=== PATIENT | female | born 1960 | race Caucasian/White ===

== ENCOUNTER 2023-01-23 07:07 | Emergency (ER) | payer OTHER ==
[2023-01-23 08:08] LABS: #Basophils 0.1 10x3/uL (0.0-0.2); #Eosinphils 0.1 10x3/uL (0.0-0.5); #Monocytes 0.7 10x3/uL (0.0-1.1); #Neutrophils 6.7 10x3/uL (1.5-8.4); %Basophils 0.6 % (0.0-2.0); %Eosinophils 1.3 % (0.0-6.0); %Lymphocytes 24.3 % (18.0-47.0); %Monocytes 7.3 % (0.0-10.0); %Neutrophils 65.6 % (40.0-75.0); Hematocrit 24.4 % (34.9-44.5); Hemoglobin 8.3 g/dL (12.0-15.5); Mean Corpuscular Hemoglobin 33.5 pg (27.0-33.0); Mean Corpuscular Volume 98.4 fl (81.6-98.3); Mean Platelet Volume 9.8 fl (7.4-10.4); Platelet Count 397 10x3/uL (150-450); RBC Distribution Width 13.9 % (11.5-14.5); Red Blood Cell (RBC) Count 2.48 10x6/uL (3.90-5.03); White Blood Cell (WBC) Count 10.2 10x3/uL (3.5-10.5)
[2023-01-23 08:16] LABS: ALT (SGPT) 7 U/L (8-55); AST (SGOT) 9 U/L (5-34); Albumin 3.6 g/dL (3.4-4.8); Alkaline Phosphatase 95 U/L (40-110); Anion Gap 25 mmol/L (10-20); BUN (Urea Nitrogen) 70 mg/dL (9.8-20.1); Bilirubin, Total 0.7 mg/dL (0.2-1.2); Calc. Creatinine Clearance 0 mL/min (70-130); Calcium 9.3 mg/dL (7.8-10.44); Carbon Dioxide 20 mmol/L (23-31); Chloride 99 mmol/L (98-107); Estimated GFR 5; Globulin 2.8 g/dL (2.4-3.5); Glucose 153 mg/dL (80-115); Magnesium 2.3 mg/dL (1.6-2.6); Potassium 3.4 mmol/L (3.5-5.1); Protein, Total 6.4 g/dL (5.8-8.1); Sodium 141 mmol/L (136-145)
== END 2023-01-23 08:55 | disposition home or self-care (01) ==
LOC: CSHERS 07:07
DX: I95.9 Hypotension, unspecified (principal); E11.22 Type 2 diabetes mellitus with diabetic chronic kidney disease; N18.6 End stage renal disease
CPT/HCPCS: 36415; 71045; 80053; 83735; 85025; 93005

== ENCOUNTER 2023-01-25 06:50 | Emergency (ER) | payer OTHER ==
[2023-01-25 07:58] LABS: ALT (SGPT) 8 U/L (8-55); AST (SGOT) 10 U/L (5-34); Albumin 3.5 g/dL (3.4-4.8); Alkaline Phosphatase 84 U/L (40-110); Anion Gap 18 mmol/L (10-20); BUN (Urea Nitrogen) 44 mg/dL (9.8-20.1); Bilirubin, Total 0.7 mg/dL (0.2-1.2); Calc. Creatinine Clearance 0 mL/min (70-130); Calcium 8.9 mg/dL (7.8-10.44); Carbon Dioxide 25 mmol/L (23-31); Chloride 102 mmol/L (98-107); Estimated GFR 7; Globulin 2.8 g/dL (2.4-3.5); Glucose 139 mg/dL (80-115); Potassium 3.4 mmol/L (3.5-5.1); Protein, Total 6.3 g/dL (5.8-8.1); Sodium 142 mmol/L (136-145)
[2023-01-25 08:04] LABS: #Eosinphils 0.1 10x3/uL (0.0-0.5); #Monocytes 0.5 10x3/uL (0.0-1.1); #Neutrophils 4.9 10x3/uL (1.5-8.4); %Basophils 0.4 % (0.0-2.0); %Eosinophils 1.7 % (0.0-6.0); %Lymphocytes 27.3 % (18.0-47.0); %Neutrophils 62.7 % (40.0-75.0); Hematocrit 25.4 % (34.9-44.5); Hemoglobin 8.4 g/dL (12.0-15.5); Mean Corpuscular HGB CONC 33.1 g/dL (32.0-36.0); Mean Corpuscular Hemoglobin 33.3 pg (27.0-33.0); Mean Corpuscular Volume 100.8 fl (81.6-98.3); Mean Platelet Volume 9.8 fl (7.4-10.4); Platelet Count 427 10x3/uL (150-450); Red Blood Cell (RBC) Count 2.52 10x6/uL (3.90-5.03); White Blood Cell (WBC) Count 7.8 10x3/uL (3.5-10.5)
== END 2023-01-25 11:42 | disposition home or self-care (01) ==
LOC: CSHERS 06:50
DX: I12.0 Hypertensive chronic kidney disease with stage 5 chronic kidney disease or end stage renal disease (principal); E11.22 Type 2 diabetes mellitus with diabetic chronic kidney disease; N18.6 End stage renal disease; J45.909 Unspecified asthma, uncomplicated; Z99.2 Dependence on renal dialysis
CPT/HCPCS: 80053; 85025; 93005; 96360; 96361

== ENCOUNTER 2023-05-19 17:46 | Emergency (ER) | payer OTHER ==
[2023-05-19 20:41] LABS: #Monocytes 0.7 10x3/uL (0.0-1.1); %Basophils 0.3 % (0.0-2.0); %Eosinophils 0.3 % (0.0-6.0); %Lymphocytes 21.2 % (18.0-47.0); %Monocytes 11.2 % (0.0-10.0); %Neutrophils 66.3 % (40.0-75.0); Hematocrit 31.7 % (34.9-44.5); Mean Corpuscular HGB CONC 34.7 g/dL (32.0-36.0); Mean Corpuscular Hemoglobin 31.1 pg (27.0-33.0); Mean Corpuscular Volume 89.5 fl (81.6-98.3); Mean Platelet Volume 9.5 fl (7.4-10.4); Platelet Count 301 10x3/uL (150-450); RBC Distribution Width 13.8 % (11.5-14.5); Red Blood Cell (RBC) Count 3.54 10x6/uL (3.90-5.03)
[2023-05-19 20:55] LABS: ALT (SGPT) 9 U/L (8-55); AST (SGOT) 10 U/L (5-34); Albumin 3.4 g/dL (3.4-4.8); Alkaline Phosphatase 120 U/L (40-110); Anion Gap 16 mmol/L (10-20); BUN (Urea Nitrogen) 45 mg/dL (9.8-20.1); Bilirubin, Total 1.3 mg/dL (0.2-1.2); Calc. Creatinine Clearance 0 mL/min (70-130); Calcium 9.3 mg/dL (7.8-10.44); Carbon Dioxide 27 mmol/L (23-31); Chloride 93 mmol/L (98-107); Estimated GFR 5; Globulin 3.3 g/dL (2.4-3.5); Glucose 138 mg/dL (80-115); Potassium 2.9 mmol/L (3.5-5.1); Protein, Total 6.7 g/dL (5.8-8.1); Sodium 133 mmol/L (136-145)
[2023-05-19 21:08] LABS: Bilirubin Neg (Negative); Blood, Urine 250 (Negative); Glucose, Urine (Dipstick) Normal (Negative); Ketone, Urine Negative (Negative); Leukocyte 500 (Negative); Nitrite Negative (Negative); Protein, Urine (Dipstick) 500 mg/dl (Neg-Trace); Specific Gravity, Urine 1.015 (1.005-1.030); Urobilinogen Normal mg/dL (Less than 2)
[2023-05-19 21:10] LABS: Clarity Cloudy (Clear)
[2023-05-19 21:12] LABS: CAUTI Indications for Culture Pelvic or flank pain; RBC/HPF 21-50 HPF (0-3); WBC/HPF Greater Than 50 HPF (0-3)
[2023-05-19 21:15] LABS: Bacteria/HPF None Seen HPF (None Seen); Urine Culture Reflex Yes Yes
[2023-05-19] MEDS ORDERED: cefTRIAXone (ROCEPHIN) 1 GM VIAL ONE (21:23)
== END 2023-05-19 22:00 | disposition home or self-care (01) ==
LOC: CSHERS 17:46
DX: T83.122A Displacement of indwelling ureteral stent, initial encounter (principal)
CPT/HCPCS: 80053; 81001; 85025; 87077; 87086; 87186; 96374; J0696

== ENCOUNTER 2023-06-24 11:34 | Emergency (ER) | payer OTHER ==
[2023-06-24] MEDS ORDERED: diphenhydrAMINE 50 MG/ML VIAL ONE (11:53)
[2023-06-24 11:56] LABS: #Eosinphils 0.2 10x3/uL (0.0-0.5); #Monocytes 0.4 10x3/uL (0.0-1.1); #Neutrophils 2.4 10x3/uL (1.5-8.4); %Basophils 0.6 % (0.0-2.0); %Eosinophils 3.7 % (0.0-6.0); %Lymphocytes 39.1 % (18.0-47.0); %Monocytes 8.1 % (0.0-10.0); %Neutrophils 48.1 % (40.0-75.0); Hematocrit 34.1 % (34.9-44.5); Hemoglobin 11.3 g/dL (12.0-15.5); Mean Corpuscular HGB CONC 33.1 g/dL (32.0-36.0); Mean Corpuscular Hemoglobin 31.3 pg (27.0-33.0); Mean Corpuscular Volume 94.5 fl (81.6-98.3); Mean Platelet Volume 9.8 fl (7.4-10.4); Platelet Count 229 10x3/uL (150-450); RBC Distribution Width 14.7 % (11.5-14.5); Red Blood Cell (RBC) Count 3.61 10x6/uL (3.90-5.03); White Blood Cell (WBC) Count 4.9 10x3/uL (3.5-10.5)
[2023-06-24 12:16] LABS: ALT (SGPT) 7 U/L (8-55); AST (SGOT) 13 U/L (5-34); Alkaline Phosphatase 156 U/L (40-110); Anion Gap 15 mmol/L (10-20); BUN (Urea Nitrogen) 15 mg/dL (9.8-20.1); Bilirubin, Total 0.8 mg/dL (0.2-1.2); Calc. Creatinine Clearance 0 mL/min (70-130); Calcium 9.2 mg/dL (7.8-10.44); Carbon Dioxide 29 mmol/L (23-31); Chloride 101 mmol/L (98-107); Estimated GFR 14; Globulin 2.9 g/dL (2.4-3.5); Glucose 83 mg/dL (80-115); Potassium 2.9 mmol/L (3.5-5.1); Protein, Total 6.9 g/dL (5.8-8.1); Sodium 142 mmol/L (136-145)
[2023-06-24 12:20] LABS: Troponin I 0.015 ng/mL (< 0.028)
[2023-06-24] MEDS ORDERED: Potassium Chloride 20 MEQ TAB ONE (12:53)
== END 2023-06-24 14:05 | disposition home or self-care (01) ==
LOC: CSHERS 11:34
DX: R55 Syncope and collapse (principal); F17.210 Nicotine dependence, cigarettes, uncomplicated; N18.6 End stage renal disease; Z99.2 Dependence on renal dialysis
CPT/HCPCS: 36415; 80053; 84484; 85025; 93005; 96374; J1200

== ENCOUNTER 2023-10-10 14:23 | Outpatient (CLI) | payer OTHER | END 2023-10-10 14:24 | disposition home or self-care (01) | LOC: CSHMAMMO 14:23 | PROVIDERS: ATTEND Family Medicine Sports Medicine | DX: Z13.820 Encounter for screening for osteoporosis (principal); M81.0 Age-related osteoporosis without current pathological fracture; M85.89 Other specified disorders of bone density and structure, multiple sites; Z78.0 Asymptomatic menopausal state | CPT/HCPCS: 77080 ==

== ENCOUNTER 2023-10-21 12:41 | Outpatient (CLI) | payer OTHER | END 2023-10-21 12:42 | disposition home or self-care (01) | LOC: CSHMAMMO 12:41 | PROVIDERS: ATTEND Family Medicine Sports Medicine | DX: N63.11 Unspecified lump in the right breast, upper outer quadrant (principal); N63.25 Unspecified lump in the left breast, overlapping quadrants; R92.323 Mammographic fibroglandular density, bilateral breasts; N64.59 Other signs and symptoms in breast | CPT/HCPCS: 76642 ×2; 77066; G0279 ==

== ENCOUNTER → 2023-11-11 | Day surgery (SDC) | payer OTHER | LOC: CSHULT 12:08 | PROVIDERS: ATTEND Internal Medicine Hematology & Oncology | PROC: 0H95XZX Drainage of Chest Skin, External Approach, Diagnostic (ICD-10-PCS; principal; 2023-11-11) | DX: C50.411 Malignant neoplasm of upper-outer quadrant of right female breast (principal); N63.11 Unspecified lump in the right breast, upper outer quadrant; Z17.0 Estrogen receptor positive status [ER+] | CPT/HCPCS: 19083; 19084; 88305; 88341; 88342; 88360 ==

== ENCOUNTER 2024-01-23 12:19 | Outpatient (CLI) | payer OTHER, MEDICAID | END 2024-01-23 12:20 | disposition home or self-care (01) | LOC: CSHULT 12:19 | PROVIDERS: ATTEND Internal Medicine Hematology & Oncology | DX: I42.7 Cardiomyopathy due to drug and external agent (principal); C50.411 Malignant neoplasm of upper-outer quadrant of right female breast; Z79.899 Other long term (current) drug therapy; I08.1 Rheumatic disorders of both mitral and tricuspid valves | CPT/HCPCS: 93306 ==

== ENCOUNTER 2024-02-02 06:48 | Day surgery (SDC) | payer OTHER, MEDICAID ==
[2024-01-29 11:35] VITALS: BMI 32.1
[2024-01-30 11:45] LABS: Hematocrit 36.7 % (34.9-44.5); Hemoglobin 11.6 g/dL (12.0-15.5); Mean Corpuscular HGB CONC 31.6 g/dL (32.0-36.0); Mean Corpuscular Volume 101.1 fL (81.6-98.3); Mean Platelet Volume 9.6 fL (7.4-10.4); Platelet Count 299 10x3/uL (150-450); RBC Distribution Width 13.7 % (11.5-14.5); Red Blood Cell (RBC) Count 3.63 10x6/uL (3.90-5.03); White Blood Cell (WBC) Count 9.1 10x3/uL (3.5-10.5)
[2024-01-30 13:07] LABS: Anion Gap 20 mmol/L (10-20); BUN (Urea Nitrogen) 37 mg/dL (9.8-20.1); Calc. Creatinine Clearance 0 mL/min (70-130); Calcium 10.3 mg/dL (7.8-10.44); Carbon Dioxide 29 mmol/L (23-31); Chloride 96 mmol/L (98-107); Estimated GFR 8; Glucose 125 mg/dL (80-115); Potassium 3.8 mmol/L (3.5-5.1); Sodium 141 mmol/L (136-145)
[2024-02-02] MEDS ORDERED: Lidocaine 1% MPF 2 ML VIAL ONE (07:30)
[2024-02-02] MEDS ORDERED: Bupivacaine HCl 0.5%/Epinephrine 1:200,000/PF 30 ml Vial ONE (07:34)
[2024-02-02] MEDS ORDERED: Lidocaine 1% PF 5 ML VIAL ONE (08:31)
[2024-02-02] MEDS ORDERED: Ondansetron PF 4 MG/2 ML Vial ONE (08:31)
[2024-02-02] MEDS ORDERED: Dexamethasone 20 MG/5 ML VIAL ONE (08:31)
[2024-02-02] MEDS ORDERED: fentaNYL 50 mcg/mL 1 mL Vial ONE ×2 (08:32→10:20)
[2024-02-02] MEDS ORDERED: Clindamycin/D5W 600 mg/50 ml Premix Bag ONE (08:35)
[2024-02-02] MEDS ORDERED: PROPOFOL 20 ML ONE (08:58)
[2024-02-02] MEDS ORDERED: PHENYLEPHRINE-NS 100 MCG/ML 10 ML SYRINGE ONE (09:03)
[2024-02-02] MEDS ORDERED: ePHEDrine Sulfate 50 MG/10 ML VIAL ONE (09:28)
[2024-02-02] MEDS ORDERED: Promethazine HCl 25 MG/ML VIAL ONE (11:08)
== END 2024-02-02 11:54 | disposition home or self-care (01) ==
LOC: CSHSDC 06:48
PROVIDERS: ATTEND Surgery
PROC: 0UB98ZZ Excision of Uterus, Via Natural or Artificial Opening Endoscopic (ICD-10-PCS; principal; 2024-02-02)
PROC: 0UB98ZZ Excision of Uterus, Via Natural or Artificial Opening Endoscopic (ICD-10-PCS; 2024-02-02)
PROC: 0JH63WZ Insertion of Totally Implantable Vascular Access Device into Chest Subcutaneous Tissue and Fascia, Percutaneous Approach (ICD-10-PCS; 2024-02-02)
DX: D25.9 Leiomyoma of uterus, unspecified (principal); C50.411 Malignant neoplasm of upper-outer quadrant of right female breast; N84.0 Polyp of corpus uteri; I25.10 Atherosclerotic heart disease of native coronary artery without angina pectoris; N18.6 End stage renal disease; E11.22 Type 2 diabetes mellitus with diabetic chronic kidney disease; J45.909 Unspecified asthma, uncomplicated; Z99.2 Dependence on renal dialysis; Z86.711 Personal history of pulmonary embolism; Z90.10 Acquired absence of unspecified breast and nipple; Z98.51 Tubal ligation status; Z90.89 Acquired absence of other organs; Z79.01 Long term (current) use of anticoagulants; Z79.899 Other long term (current) drug therapy; Z88.0 Allergy status to penicillin; Z88.1 Allergy status to other antibiotic agents; Z91.041 Radiographic dye allergy status; F17.200 Nicotine dependence, unspecified, uncomplicated
CPT/HCPCS: 36561; 58561; 71045; 80048; 85027; 86850; 86900; 86901; C1788; J1100; J1642; J2405; J2550; J2704; J3010; J3490; 36415; 88305

== ENCOUNTER 2025-03-29 14:08 | Outpatient (CLI) | payer OTHER, MEDICAID | END 2025-03-29 14:09 | disposition home or self-care (01) | LOC: CSHMAMMO 14:08 | PROVIDERS: ATTEND Surgery | DX: Z08 Encounter for follow-up examination after completed treatment for malignant neoplasm (principal); Z85.3 Personal history of malignant neoplasm of breast | CPT/HCPCS: 77065; G0279 ==